=== PATIENT | male | born 2000 ===

== ENCOUNTER 2020-10-20 13:28 | Emergency (ER) | payer SELFPAY ==
[2020-10-20] MEDS ORDERED: methylPREDNISolone Sod Succinate 125 MG/2 ML INJ IV ONE (13:31)
[2020-10-20] MEDS ORDERED: CETIRIZINE 10 MG TAB PO ONE (13:32)
[2020-10-20] MEDS ORDERED: FAMOTIDINE 20 MG/2 ML INJ IV ONE (13:32)
--- NOTE | 2020-10-20 13:44 | Emergency Department Report ---
ED Allergic Reaction HPI - General Chief complaint: Allergic Reaction Stated complaint: ALLERGIC REACTION Time Seen by Provider: 10/20/20 13:31 Source: patient Mode of arrival: Ambulatory Limitations: No Limitations - History of Present Illness Initial Comments: Chief complaint: Something stuck mean behind my ear. History obtained using frothing machine operator at bedside HPI this is a 20-year-old healthy male past medical History Who Was Stung by an Insect behind His Left Ear While Laying on the Grass. The insect sting occurred yesterday. He Immediately Had Facial Swelling. He Denies Chest Pain, Shortness of Breath, Syncope. Denies Palpitations. He Denies Throat or Lip Swelling. No Previous History of Allergic Reaction. MD Complaint: allergic reaction, facial swelling -: Sudden Symptoms: rash, facial swelling Severity: mild Treatment Prior to Arrival: none Previous Allergy History: none - Related Data Previous Rx's Medication Instructions Recorded Last Taken Type EPINEPHrine [Epipen] 0.3 mg IJ ONCE PRN #1 auto.injct 10/20/20 Unknown Rx Famotidine [Acid Controller] 20 mg PO BID #6 tablet 10/20/20 Unknown Rx Prednisone [predniSONE 10 mg 10 mg PO .TAPER #1 tab.ds.pk 10/20/20 Unknown Rx (6-Day Pack, 21 Tabs)] diphenhydrAMINE [Benadryl CAP] 25 mg PO TID 3 Days #9 capsule 10/20/20 Unknown Rx Allergies Allergy/AdvReac Type Severity Reaction Status Date / Time No Known Allergies Allergy Verified 10/20/20 13:37 ED Review of Systems ROS: Stated complaint: ALLERGIC REACTION Other details as noted in HPI Comment: All other systems reviewed and negative Constitutional: denies: fever, malaise Respiratory: denies: cough, shortness of breath Cardiovascular: denies: chest pain Gastrointestinal: denies: abdominal pain, nausea, vomiting ED Past Medical Hx - Past Medical History Previous Medical History?: No - Surgical History Past Surgical History?: No - Family History Family history: no significant - Social History Smoking Status: Never Smoker Substance Use Type: None - Medications Home Medications: Home Medications Medication Instructions Recorded Confirmed Last Taken Type EPINEPHrine [Epipen] 0.3 mg IJ ONCE PRN #1 auto.injct 10/20/20 Unknown Rx Famotidine [Acid Controller] 20 mg PO BID #6 tablet 10/20/20 Unknown Rx Prednisone [predniSONE 10 mg 10 mg PO .TAPER #1 tab.ds.pk 10/20/20 Unknown Rx (6-Day Pack, 21 Tabs)] diphenhydrAMINE [Benadryl CAP] 25 mg PO TID 3 Days #9 capsule 10/20/20 Unknown Rx ED Physical Exam - General Limitations: No Limitations General appearance: alert, in no apparent distress - Head Head exam: Present: other (Diffuse redness swelling of the forehead periorbital regions cheeks no involvement of the lips, red patch posteriorto the left earlobe) - Eye Eye exam: Present: normal appearance - ENT ENT exam: Present: mucous membranes moist - Neck Neck exam: Present: normal inspection, full ROM - Respiratory Respiratory exam: Present: normal lung sounds bilaterally. Absent: respiratory distress, wheezes, rales, rhonchi - Cardiovascular Cardiovascular Exam: Present: regular rate, normal rhythm, normal heart sounds. Absent: systolic murmur, diastolic murmur, rubs, gallop - GI/Abdominal GI/Abdominal exam: Present: soft, normal bowel sounds. Absent: distended, tenderness, guarding, rebound - Rectal Rectal exam: Present: deferred - Extremities Exam Extremities exam: Present: normal inspection - Back Exam Back exam: Present: normal inspection - Neurological Exam Neurological exam: Present: alert, oriented X3 - Psychiatric Psychiatric exam: Present: normal affect, normal mood - Skin Skin exam: Present: warm, dry, intact, normal color. Absent: rash ED Course Vital Signs 10/20/20 13:31 Temperature 98 F Pulse Rate 91 H Respiratory 16 Rate Blood Pressure 142/86 [Left] O2 Sat by Pulse 96 Oximetry ED Medical Decision Making - Medical Decision Making Acute allergic reaction insect sting involving facial swelling only without angioedema or atelectasis: Patient received p.o. steroids cetirizine, IV famotidine, IV Solu-Medrol. Patient prescribed prednisone, Benadryl, famotidine, EpiPen. Critical care attestation.: If time is entered above; I have spent that time in minutes in the direct care of this critically ill patient, excluding procedure time. ED Disposition Clinical Impression: Allergic reaction to insect sting Disposition: DC-01 TO HOME OR SELFCARE Is pt being admited?: No Does the pt Need Aspirin: No Condition: Stable Instructions: Bee, Wasp, or Hornet Sting, Adult Prescriptions: Famotidine [Acid Controller] 20 mg PO BID #6 tablet diphenhydrAMINE [Benadryl CAP] 25 mg PO TID 3 Days #9 capsule EPINEPHrine [Epipen] 0.3 mg IJ ONCE PRN #1 auto.injct PRN Reason: severe allergic reaction Prednisone [predniSONE 10 mg (6-Day Pack, 21 Tabs)] 10 mg PO .TAPER #1 tab.ds.pk Referrals: KEITH LOWE MD [Staff Physician] - 3-5 Days Print Language: TAMAZIGHT
[2020-10-20 15:11] VITALS: BP 127/77
== END 2020-10-20 15:48 | disposition home or self-care (01) ==
LOC: ED 13:28
DX: T63.441A Toxic effect of venom of bees, accidental (unintentional), initial encounter (principal); R22.0 Localized swelling, mass and lump, head; Z79.899 Other long term (current) drug therapy; Y92.89 Other specified places as the place of occurrence of the external cause
CPT/HCPCS: 96374; 96375; 99283; J2930